=== PATIENT | male | born 1955 | race African-American/Black ===

== ENCOUNTER 2020-09-15 14:46 | Inpatient (IN) | payer OTHER ==
[2020-09-15 16:43] VITALS: BMI 26.6
[2020-09-15] MEDS ORDERED: METHOCARBAMOL 500 MG TABLET PO PRN (17:20)
[2020-09-15] MEDS ORDERED: NALOXONE HCL 0.4 MG/ML VIAL IM PRN (17:20)
[2020-09-15] MEDS ORDERED: MAGNESIUM HYDROX 2400MG/30ML ORAL SUSPENSION 30 ML CUP PO PRN (17:20)
[2020-09-15] MEDS ORDERED: MENTHOL/PHENOL 1 EACH UD MM PRN (17:20)
[2020-09-15] MEDS ORDERED: MAGNESIUM CITRATE 300 ML BOTTLE PO PRN (17:20)
[2020-09-15] MEDS ORDERED: IBUPROFEN 400 MG TABLET (FP) PO PRN (17:20)
[2020-09-15] MEDS ORDERED: MAG HYDROX/AL HYDROX/SIMETH 30 ML UNIT-DOSE CUP PO PRN (17:20)
[2020-09-15] MEDS ORDERED: BISMUTH SUBSALICYLATE 524 MG/30 ML PO PRN (17:20)
[2020-09-15] MEDS ORDERED: NICOTINE POLACRILEX 2 MG GUM BUC PRN (17:20)
[2020-09-15] MEDS ORDERED: ACETAMINOPHEN 325 MG TABLET (FP) PO PRN ×2 (17:20)
[2020-09-15] MEDS ORDERED: METHADONE HCL 10 MG TABLET (FOR DETOX USE ONLY) PO ONE (18:00)
[2020-09-15] MEDS: LISINOPRIL 20 MG TABLET PO SCH (19:29)
[2020-09-15] MEDS: THIAMINE HCL 100 MG TABLET (FP) PO SCH (23:03)
[2020-09-15] MEDS: MELATONIN 5 MG TABLETS PO SCH (23:03)
[2020-09-15] MEDS: cloNIDine HCL 0.1 MG TABLET PO PRN (23:03)
[2020-09-16] MEDS: cloNIDine HCL 0.1 MG TABLET PO SCH ×2 (01:59→10:41)
[2020-09-16] MEDS: metFORMIN HCL 500 MG TABLET (FP) PO SCH ×2 (06:22→17:18)
[2020-09-16] MEDS: INSULIN SLIDING SCALE (NOVOLOG) 1 VIAL SQ SCH ×3 (06:39→16:59)
[2020-09-16] MEDS ORDERED: METHADONE HCL 5 MG TABLET (FOR DETOX USE ONLY) ONE (09:25)
[2020-09-16] MEDS ORDERED: METHADONE HCL 10 MG TABLET (FOR DETOX USE ONLY) ONE (09:26)
[2020-09-16] MEDS ORDERED: METHADONE (DETOX) 20 MG, METHADONE (DETOX) 5 MG PO ONE (10:00)
[2020-09-16 10:13] LABS: HEMATOCRIT 28.3 % (35.4-49); HEMOGLOBIN 9.3 GM/dL (11.7-16.9); MCH 28.4 pg (25.7-33.7); MEAN CELL VOLUME 86.1 fl (80-96); PLATELET COUNT 305 K/MM3 (134-434); RBC 3.29 M/mm3 (4.00-5.60); RDW 16.1 % (11.9-15.9); WHITE BLOOD COUNT 5.6 K/mm3 (4.0-10.0)
[2020-09-16] MEDS: LISINOPRIL 20 MG TABLET PO SCH (10:41)
[2020-09-16] MEDS: NICOTINE 14 MG/24 HOURS TOPICAL PATCH TD SCH (10:42)
[2020-09-16] MEDS: PRENATAL VITAMINS W/ FOLIC ACID TABLET (FP) PO SCH (10:42)
[2020-09-16 10:47] LABS: ALBUMIN 2.6 g/dl (3.4-5.0); BLOOD UREA NITROGEN 11.6 mg/dL (7-18); CALCIUM 8.7 mg/dL (8.5-10.1)
[2020-09-16 10:50] LABS: BILIRUBIN,TOTAL 0.2 mg/dL (0.2-1); TOT PROT 5.7 g/dl (6.4-8.2)
[2020-09-16] MEDS: cloNIDine HCL 0.1 MG TABLET PO PRN ×2 (17:18→22:22)
[2020-09-16] MEDS: THIAMINE HCL 100 MG TABLET (FP) PO SCH (22:22)
[2020-09-16] MEDS: MELATONIN 5 MG TABLETS PO SCH (22:23)
[2020-09-17] MEDS: metFORMIN HCL 500 MG TABLET (FP) PO SCH (06:18)
[2020-09-17] MEDS: INSULIN SLIDING SCALE (NOVOLOG) 1 VIAL SQ SCH ×2 (06:19→10:56)
[2020-09-17] MEDS: cloNIDine HCL 0.1 MG TABLET PO PRN (07:16)
[2020-09-17] MEDS ORDERED: METHADONE HCL 10 MG TABLET (FOR DETOX USE ONLY) PO ONE (10:00)
[2020-09-17] MEDS: PRENATAL VITAMINS W/ FOLIC ACID TABLET (FP) PO SCH (10:36)
[2020-09-17] MEDS: cloNIDine HCL 0.1 MG TABLET PO SCH (10:37)
[2020-09-17] MEDS: LISINOPRIL 20 MG TABLET PO SCH (10:37)
[2020-09-17] MEDS: NICOTINE 14 MG/24 HOURS TOPICAL PATCH TD SCH (10:56)
[2020-09-17 12:58] VITALS: BP 196/87; PULSE 54; TEMP 97.1
[2020-09-18] MEDS ORDERED: METHADONE (DETOX) 10 MG, METHADONE (DETOX) 5 MG PO ONE (10:00)
[2020-09-19] MEDS ORDERED: METHADONE HCL 10 MG TABLET (FOR DETOX USE ONLY) PO ONE (10:00)
[2020-09-20] MEDS ORDERED: METHADONE HCL 5 MG TABLET (FOR DETOX USE ONLY) PO ONE (06:00)
== END 2020-09-17 14:39 | disposition left against medical advice (07) | DRG 894 ==
LOC: YASAS 14:46 → Y6N 17:45
PROVIDERS: ADMIT Allergy & Immunology; ATTEND Allergy & Immunology
PROC: HZ2ZZZZ Detoxification Services for Substance Abuse Treatment (ICD-10-PCS; principal; 2020-09-15)
DX: F11.23 Opioid dependence with withdrawal (principal); F12.20 Cannabis dependence, uncomplicated; F17.210 Nicotine dependence, cigarettes, uncomplicated; F32.9 Major depressive disorder, single episode, unspecified; I10 Essential (primary) hypertension; E11.9 Type 2 diabetes mellitus without complications; Z79.84 Long term (current) use of oral hypoglycemic drugs; E78.5 Hyperlipidemia, unspecified; M54.5 Low back pain; G89.29 Other chronic pain; Z99.89 Dependence on other enabling machines and devices; T24.002D Burn of unspecified degree of unspecified site of left lower limb, except ankle and foot, subsequent encounter; X08.8XXD Exposure to other specified smoke, fire and flames, subsequent encounter
CPT/HCPCS: 36415; 80053; 82728; 82962; 83540; 83550; 85027; 86780; C9803; J0735; U0003; U0005

== ENCOUNTER 2020-11-19 15:55 | Inpatient (IN) | payer OTHER ==
[2020-11-19 19:05] VITALS: BMI 24.1
[2020-11-19] MEDS ORDERED: MAGNESIUM CITRATE 300 ML BOTTLE PO PRN (19:05)
[2020-11-19] MEDS ORDERED: BISMUTH SUBSALICYLATE 524 MG/30 ML PO PRN (19:05)
[2020-11-19] MEDS ORDERED: MENTHOL/PHENOL 1 EACH UD MM PRN (19:05)
[2020-11-19] MEDS ORDERED: MAG HYDROX/AL HYDROX/SIMETH 30 ML UNIT-DOSE CUP PO PRN (19:05)
[2020-11-19] MEDS ORDERED: ONDANSETRON *ODT* 4 MG TABLET SL PRN (19:05)
[2020-11-19] MEDS ORDERED: ACETAMINOPHEN 325 MG TABLET (FP) PO PRN ×2 (19:05)
[2020-11-19] MEDS ORDERED: cloNIDine HCL 0.1 MG TABLET PO PRN (19:05)
[2020-11-19] MEDS ORDERED: NICOTINE POLACRILEX 2 MG GUM BUC PRN (19:05)
[2020-11-19] MEDS ORDERED: NICOTINE 10 MG CARTRIDGE (INHALER) IH PRN (19:05)
[2020-11-19] MEDS ORDERED: MAGNESIUM HYDROX 2400MG/30ML ORAL SUSPENSION 30 ML CUP PO PRN (19:05)
[2020-11-19] MEDS ORDERED: methaDONE HCL 10 MG TABLET (FOR DETOX USE ONLY) PO ONE (19:05)
[2020-11-19] MEDS ORDERED: IBUPROFEN 400 MG TABLET (FP) PO PRN (19:05)
[2020-11-19] MEDS: THIAMINE HCL 100 MG TABLET (FP) PO SCH (23:47)
[2020-11-19] MEDS: APIXABAN 5 MG TABLET PO SCH (23:47)
[2020-11-19] MEDS: MELATONIN 5 MG TABLETS PO SCH (23:47)
[2020-11-19] MEDS: ATORVASTATIN CA 40 MG TABLET (FP) PO SCH (23:47)
[2020-11-19] MEDS: hydrALAZINE HCL 50 MG TABLET (FP) PO SCH (23:47)
[2020-11-19] MEDS: hydrOXYzine PAMOATE 25 MG CAPSULE (FP) PO SCH (23:47)
[2020-11-20] MEDS ORDERED: methaDONE HCL 10 MG TABLET (FOR DETOX USE ONLY) PO ONE ×2 (00:09→09:11)
[2020-11-20] MEDS: METHOCARBAMOL 500 MG TABLET PO PRN ×2 (06:39→18:08)
[2020-11-20] MEDS: hydrOXYzine PAMOATE 25 MG CAPSULE (FP) PO SCH (07:17)
[2020-11-20] MEDS ORDERED: hydrOXYzine PAMOATE 25 MG CAPSULE (FP) PO PRN (09:04)
[2020-11-20] MEDS: cloNIDine HCL 0.1 MG TABLET PO SCH ×2 (09:41→22:59)
[2020-11-20] MEDS: amLODIPine BESYLATE 10 MG TABLET (FP) PO SCH (09:42)
[2020-11-20] MEDS: HYDROCHLOROTHIAZIDE 12.5 MG CAPSULE (FP) PO SCH (09:42)
[2020-11-20] MEDS: TAMSULOSIN HCL 0.4 MG CAP PO SCH (09:42)
[2020-11-20] MEDS: LISINOPRIL 20 MG TABLET PO SCH (09:42)
[2020-11-20] MEDS: PRENATAL VITAMINS W/ FOLIC ACID TABLET (FP) PO SCH (09:42)
[2020-11-20] MEDS: GABAPENTIN 300 MG CAPSULE PO SCH (09:42)
[2020-11-20] MEDS: hydrALAZINE HCL 50 MG TABLET (FP) PO SCH ×2 (09:43→22:57)
[2020-11-20] MEDS: APIXABAN 5 MG TABLET PO SCH ×2 (09:43→22:57)
[2020-11-20] MEDS: diazePAM 5 MG TABLET PO PRN ×2 (09:46→18:08)
[2020-11-20 10:02] LABS: HEMATOCRIT 34.4 % (35.4-49); HEMOGLOBIN 11.5 GM/dL (11.7-16.9); MCH 28.1 pg (25.7-33.7); MCHC 33.3 g/dl (32.0-35.9); MEAN CELL VOLUME 84.4 fl (80-96); MEAN PLT VOLUME 9.2 fl (7.5-11.1); PLATELET COUNT 273 10^3/uL (134-434); RBC 4.08 M/mm3 (4.00-5.60); WHITE BLOOD COUNT 7.9 K/mm3 (4.0-10.0)
[2020-11-20 10:13] LABS: ALBUMIN 3.3 g/dl (3.4-5.0); BLOOD UREA NITROGEN 18.8 mg/dL (7-18)
[2020-11-20 10:14] LABS: BILIRUBIN,TOTAL 0.5 mg/dL (0.2-1); TOT PROT 6.4 g/dl (6.4-8.2)
[2020-11-20 10:15] LABS: CALCIUM 9.7 mg/dL (8.5-10.1)
[2020-11-20 13:20] VITALS: TEMP 96.9
[2020-11-20] MEDS ORDERED: metFORMIN HCL 500 MG TABLET (FP) PO SCH (16:30)
[2020-11-20 17:56] VITALS: PULSE 50
[2020-11-20 21:48] VITALS: BP 155/70
[2020-11-20] MEDS: THIAMINE HCL 100 MG TABLET (FP) PO SCH (22:57)
[2020-11-20] MEDS: ATORVASTATIN CA 40 MG TABLET (FP) PO SCH (22:58)
[2020-11-20] MEDS: MELATONIN 5 MG TABLETS PO SCH (23:34)
[2020-11-21] MEDS ORDERED: metFORMIN HCL 500 MG TABLET (FP) PO SCH (07:00)
[2020-11-21] MEDS ORDERED: methaDONE HCL 10 MG TABLET (FOR DETOX USE ONLY) PO ONE (10:00)
[2020-11-21] MEDS: APIXABAN 5 MG TABLET PO SCH (12:36)
[2020-11-21] MEDS: TAMSULOSIN HCL 0.4 MG CAP PO SCH (12:36)
[2020-11-21] MEDS: hydrALAZINE HCL 50 MG TABLET (FP) PO SCH (12:36)
[2020-11-21] MEDS: cloNIDine HCL 0.1 MG TABLET PO SCH (12:36)
[2020-11-21] MEDS: GABAPENTIN 300 MG CAPSULE PO SCH (12:38)
[2020-11-21] MEDS: HYDROCHLOROTHIAZIDE 12.5 MG CAPSULE (FP) PO SCH (12:38)
[2020-11-21] MEDS: LISINOPRIL 20 MG TABLET PO SCH (12:39)
[2020-11-21] MEDS: PRENATAL VITAMINS W/ FOLIC ACID TABLET (FP) PO SCH (12:39)
[2020-11-21] MEDS: amLODIPine BESYLATE 10 MG TABLET (FP) PO SCH (12:39)
[2020-11-23] MEDS ORDERED: methaDONE HCL 10 MG TABLET (FOR DETOX USE ONLY) PO ONE (10:00)
== END 2020-11-21 08:47 | disposition left against medical advice (07) | DRG 894 ==
LOC: YASAS 15:55 → Y3N 19:21
PROVIDERS: ADMIT Allergy & Immunology; ATTEND Allergy & Immunology
PROC: HZ2ZZZZ Detoxification Services for Substance Abuse Treatment (ICD-10-PCS; principal; 2020-11-19)
DX: F11.23 Opioid dependence with withdrawal (principal); L97.829 Non-pressure chronic ulcer of other part of left lower leg with unspecified severity; F10.230 Alcohol dependence with withdrawal, uncomplicated; F12.10 Cannabis abuse, uncomplicated; F17.210 Nicotine dependence, cigarettes, uncomplicated; I10 Essential (primary) hypertension; E11.9 Type 2 diabetes mellitus without complications; Z56.0 Unemployment, unspecified
CPT/HCPCS: 36415; 71046-TC-FY; 80053; 82962; 83036; 85027; 86780; C9803; J0735; Q0162; U0003; U0005